=== PATIENT | male | born 1955 | race African-American/Black ===

== ENCOUNTER 2019-09-29 09:14 | Inpatient (IN) | payer OTHER, MEDICAID ==
[~2019-09-29] VITALS: Ht 180.3 cm; Wt 113.4 kg
--- NOTE | 2019-09-29 09:14 | NUR ---
PATIENT BIBA TO BED 9 AT THIS TIME.
[2019-09-29 09:27] VITALS: BP 103/58
--- NOTE | 2019-09-29 09:30 | NUR ---
FITO FROM [facility] C/O EDEMA TO PTS BILATERAL LEGS UP TO PITS HIP, L ARM/HAND AND SWOLLEN TESTICLES APPROX THE SIZE OF A CANTALOPE, WITH PAIN 7/10. PER PT THE SWELLING STARTED A "COUPLE DAYS AGO". 2+PITTING EDEMA TO LEGS. PALPABLE RADIAL PULSES. USED DOPPLER FOR PEDAL PULSES. HR 101. LUNGS CLEAR BILATERALLY. CURRENTLY ON RA. PT USES CANE/WHEELCHAIR TO ASSIST. PT ALERT AND AWAKE. PMH- HTN, CHF, PACEMAKER, MUSCLE WEAKNESS, HYPERLIPIDEMIA, GERD, AFIB, CKD, PREVIOUS FRACTURED L HIP RX- LASIX, CARVEDILOL
--- NOTE | 2019-09-29 09:31 | NUR ---
JUAN STATES HE DID NOT TAKE HIS LASIX TODAY
--- NOTE | 2019-09-29 09:50 | NUR ---
URINE COLLECTED, PT ABLE TO VOID
--- NOTE | 2019-09-29 10:11 | NUR ---
PT STARTED ON 3 L NC. PT 02 WAS 90% RA.
--- NOTE | 2019-09-29 10:16 | NUR ---
IV INSERTED, UNABLE TO DRAW LABS
--- NOTE | 2019-09-29 10:32 | NUR ---
EMT AT BEDSIDE FOR EKG
--- NOTE | 2019-09-29 10:42 | NUR ---
XRAY AT BEDSIDE
[2019-09-29] MEDS ORDERED: CARV6.25 PO ×2 (10:43→14:06)
[2019-09-29] MEDS ORDERED: FURO-570 PO (10:43)
--- NOTE | 2019-09-29 10:48 | NUR ---
Called and spoke to Estela from [facility] to obtain a medication list. Estela is the med tech at [facility] and states patient takes his own medications. She will provide me with an old list when he was first brought to the facility that she states "I know some things have changed but I don't know which ones." I asked her to fax over the old medication list and I will review it with the patient.
[2019-09-29] MEDS ORDERED: FUROSEMIDE 100 MG/10 ML VIAL IVP ONE (11:05)
[2019-09-29] MEDS ORDERED: NITROGLYCERIN 2% 1 GM PKT TP ONE (11:05)
[2019-09-29] MEDS ORDERED: SPIRONOLACTONE 50 MG TAB PO ONE (11:05)
--- NOTE | 2019-09-29 11:12 | NUR ---
ULTRASOUND AT BEDSIDE STRATEGIC ADVISOR TO ATTEMPT ABG AT A LATER TIME
--- NOTE | 2019-09-29 11:16 | NUR ---
US AT BEDSIDE
[2019-09-29 11:24] LABS: ANION GAP 10.5 (8-16); CREATININE 2.2 mg/dL (0.7-1.3); POTASSIUM 3.5 mmol/L (3.5-5.1)
[2019-09-29 11:26] LABS: PROTHROMBIN TIME 13.9 secs (10.8-13.4)
[2019-09-29 11:30] LABS: ALBUMIN 3.1 g/dL (3.4-5.0); TOTAL BILIRUBIN 3.3 mg/dL (0.0-1.0)
[2019-09-29 11:31] LABS: APPEARANCE,URINE CLEAR (CLEAR); BILIRUBIN,URINE NEGATIVE (NEGATIVE); BLOOD, URINE NEGATIVE (NEGATIVE); COLOR,URINE YELLOW (YELLOW); LEUKOCYTE ESTERASE ,URINE NEGATIVE (NEGATIVE); NITRITE, URINE NEGATIVE (NEGATIVE); UGLUCOSE NEGATIVE (NEGATIVE)
--- NOTE | 2019-09-29 11:32 | NUR ---
NITRO TP APPLIED TO PT CHEST, LASIX IVP AND SPIRALACTONE PO ADMINISTERED
[2019-09-29 11:34] LABS: HEMOGLOBIN 8.2 g/dL (12.0-18.0); MEAN CORPUSCULAR HEMOGLOBIN 21 pg (27-31); MEAN CORPUSCULAR HGB CONC 30 g/dL (33-37); MEAN CORPUSCULAR VOLUME 69.3 fL (80-94); PLATELET COUNT (AUTO) 181 K/uL (140-450); WHITE BLOOD COUNT (AUTO) 4.9 K/uL (4.8-10.8)
[2019-09-29 11:43] LABS: LYMPHOCYTES % (MANUAL) 15 % (20-46); MONOCYTES % (MANUAL) 15 % (5-12)
[2019-09-29 11:44] LABS: EOSINOPHILS % (MANUAL) 7 % (0-4)
--- NOTE | 2019-09-29 11:47 | NUR ---
RT AT BEDSIDE FOR ABGS
[2019-09-29] MEDS ORDERED: MORPHINE SULFATE 2 MG/ML SYR IVP ONE (12:00)
--- NOTE | 2019-09-29 12:08 | NUR ---
NADR AT THIST JOSE L. PAIN 04/23 , MORPHINE IVP ADMINISTERED
[2019-09-29] MEDS ORDERED: LORazepam 2 MG/ML VIAL IM/IVP PRN (12:40)
[2019-09-29] MEDS ORDERED: ZOLPIDEM 5 MG TAB PO PRN (12:40)
[2019-09-29] MEDS ORDERED: ONDANSETRON 4 MG/2 ML VIAL IM/IVP PRN (12:40)
[2019-09-29] MEDS: NACL 0.9% 1,000 ML IV SCH (12:40)
[2019-09-29] MEDS ORDERED: DOCUSATE SODIUM 100 MG GELCAP PO PRN (12:40)
[2019-09-29] MEDS ORDERED: MORPHINE SULFATE 2 MG/ML SYR IVP PRN (12:40)
[2019-09-29] MEDS ORDERED: ACETAMINOPHEN 325 MG TAB PO PRN (12:40)
--- NOTE | 2019-09-29 13:00 | NUR ---
PT URINATED 100 ML OF YELLOW URINE
[2019-09-29 13:09] LABS: BARBITURATE, URINE NEG. ng/ml (NEG <=200); BENZODIAZEPINE, URINE NEG. ng/mL (NEG <=200); CANNABINOID, URINE POS. ng/mL (NEG <=50); COCAINE, URINE NEG. ng/mL (NEG <=300); PHENCYCLIDINE SCREEN,URINE NEG. ng/mL (NEG <=25)
[2019-09-29 13:16] LABS: OPIATE, URINE NEG. ng/mL (NEG <=2000)
[2019-09-29 13:18] LABS: MAGNESIUM 2.4 mg/dL (1.8-2.4); PHOSPHORUS 3.3 mg/dL (2.5-4.9); THYROID STIMULATING HORMONE 2.45 uIU/mL (0.34-3.74)
[2019-09-29 13:30] VITALS: BP 118/81
--- NOTE | 2019-09-29 13:30 | NUR ---
NADR AT THIS TIME, PAIN 6/10
--- NOTE | 2019-09-29 13:30 | NUR ---
RECEIVED PT FROM ED NURSE. PT IS AWAKE AND ALERT, ON 3L O3 NC, IV SITE NOTED ON THE R HAND 20 G, PATENT AND INTACT. SKIN IS INTACT. ALL EXTREMITIES, ASIDE FROM THE RUE, ARE EDEMATOUS. THERE IS A SOFT BULGE NOTED TO BE PROTRUDING ON THE R SIDE OF THE NECK. PACEMAKER IS VISIBLE UNDER THE L CHEST SKIN. FALL PRECAUTIONS PUT IN PLACE. MRSA SWAB TAKEN. CALL LIGHT GIVEN TO THE PT WITHIN REACH. WILL CONTINUE TO MONITOR.
--- NOTE | 2019-09-29 13:35 | NUR ---
VS UPON ADMISSION: BP 118/81, HR 84, O2 100% ON 3L, TEMP 98.2, RR 20.
--- NOTE | 2019-09-29 13:36 | NUR ---
Patient will be admitted to care of DR TERAN. Admited to TELE. Will go to room 107B. Belongings list completed AND REVIEWED WITH BRANDON PEÑA. Report to CASEY TAYLOR.
--- NOTE | 2019-09-29 14:23 | NUR ---
PT REFUSING TO HAVE SENIOR CATHETER INSERTED, DR TRISTAN IS AWARE. PT IS ABLE TO USE THE URINAL.
[2019-09-29] MEDS ORDERED: MORPHINE SULFATE 2 MG/ML SYR IVP SCH (15:00)
[2019-09-29] MEDS ORDERED: NICOTINE TRANSD SYS 14 MG/24 HR PATCH TD SCH (15:00)
--- NOTE | 2019-09-29 15:30 | NUR ---
PT HAVING US AT THIS TIME
[2019-09-29 16:00] VITALS: BP 107/70
[2019-09-29] MEDS: FUROSEMIDE 40 MG/4 ML VIAL IVP SCH (17:13)
[2019-09-29] MEDS: SODIUM FERRIC GLUCONATE 125 MG in NACL 0.9% 100 ML IV SCH (17:13)
--- NOTE | 2019-09-29 19:20 | NUR ---
RECEIVED PATIENT FROM AM SHIFT NURSE. PATIENT LYING IN BED ASLEEP. IV ACCESS ON RIGHT HAND 20 GAUGE PATENT, INTACT AND INFUSING WELL. PACEMAKER IN PLACE. INITIAL ASSESSMENT DONE. TELE MONITORING IN PLACE. PATIENT IS AMBULATORY WITH ASSIST. SKIN IS INTACT BUT NOTED WITH EDEMA ON LEFT ARM AND LOWER EXTREMITIES.ON 3LPM O2 VIA NASAL CANNULA. CALL LIGHT PLACED WITHIN PATIENT REACH. BED IN LOW. WILL CONTINUE TO MONITOR PATIENT.
--- NOTE | 2019-09-29 21:06 | NUR ---
ROUNDS DONE. VISIBLE CHEST RISE AND FALL NOTED. WILL CONTINUE TO MONITOR PATIENT.
[2019-09-29] MEDS: CARVEDILOL 6.25 MG TAB PO SCH (21:32)
[2019-09-29] MEDS: ATORVASTATIN 20 MG TAB PO SCH (21:32)
--- NOTE | 2019-09-30 00:10 | NUR ---
VITALS TAKEN. NO DISTRESS NOTED. WILL CONTINUE TO MONITOR PATIENT.
[2019-09-30 00:30] LABS: IRON, SERUM 24 ug/dl (50-175)
[2019-09-30 00:31] LABS: TOTAL IRON BINDING CAPACITY 323 ug/dl (250-450)
[2019-09-30 00:33] VITALS: BP 107/66
[2019-09-30] MEDS: HYDROcodone/APAP 5/325 MG 1 TAB TAB PO PRN ×2 (01:16→22:54)
--- NOTE | 2019-09-30 02:00 | NUR ---
ROUNDS DONE. VISIBLE CHEST RISE AND FALL NOTED. WILL CONTINUE TO MONITOR PATIENT.
--- NOTE | 2019-09-30 02:55 | NUR ---
SPOKE WITH DR. FERRIS FOR STAT EKG TO BE DONE. PATIENT IN STABLE CONDITION AT THIS TIME VISIBLE CHEST RISE AND FALL NOTED.
[2019-09-30 04:10] VITALS: BP 131/63
--- NOTE | 2019-09-30 04:15 | NUR ---
VITALS TAKEN. NO DISTRESS NOTED. WILL CONTINUE TO MONITOR PATIENT.
[2019-09-30 06:12] LABS: FOLIC ACID 6.8 ng/mL (>3.0)
--- NOTE | 2019-09-30 07:04 | NUR ---
PATIENT IN STABLE CONDITION. CALL LIGHT WITHIN PATIENT REACH. ENDORSED TO AM SHIFT NURSE FOR CONTINUITY OF CARE.
--- NOTE | 2019-09-30 07:05 | NUR ---
RECEIVED REPORT FROM HEALTH SAFETY ENGINEER NURSE, PATIENT IN STABLE CONDITION, WILL CONTINUE TO MONITOR.
[2019-09-30 08:00] VITALS: BP 107/61
[2019-09-30 08:13] LABS: BASOPHILS # (AUTO) 0.1 K/uL (0.00-0.22); BASOPHILS % (AUTO) 2.8 % (0.0-2.0); EOSINOPHILS # (AUTO) 0.4 K/uL (0-0.4); EOSINOPHILS % (AUTO) 8.7 % (0.0-4.0); HEMOGLOBIN 7.8 g/dL (12.0-18.0); LYMPHOCYTES # (AUTO) 0.5 K/uL (2.0-11.5); LYMPHOCYTES % (AUTO) 9.8 % (20.5-51.1); MEAN CORPUSCULAR HEMOGLOBIN 21 pg (27-31); MEAN CORPUSCULAR HGB CONC 30 g/dL (33-37); MEAN CORPUSCULAR VOLUME 70.1 fL (80-94); MONOCYTES # (AUTO) 0.6 K/uL (0.8-1.0); MONOCYTES % (AUTO) 11.6 % (1.7-9.3); NEUTROPHILS # (AUTO) 3.3 K/uL (1.8-7.7); NEUTROPHILS % (AUTO) 67.1 % (42.2-75.2); PLATELET COUNT (AUTO) 143 K/uL (140-450); WHITE BLOOD COUNT (AUTO) 4.9 K/uL (4.8-10.8)
--- NOTE | 2019-09-30 08:43 | NUR ---
PATIENT HAS BEEN SCREENED AND CATEGORIZED MODERATE NUTRITION RISK. PATIENT WILL BE SEEN WITHIN 3-5 DAYS OF ADMISSION. 10/02/19 10/04/[address]
--- NOTE | 2019-09-30 09:00 | NUR ---
SCHEDULED MEDICATION GIVEN TO PATIENT WITHOUT DISTRESS, PATIENT IN STABLE CONDITION. WILL CONTINUE TO MONITOR
[2019-09-30 09:08] LABS: ANION GAP 15.4 (8-16); CARBON DIOXIDE 26.4 mmol/L (21-32); CREATININE 2.1 mg/dL (0.7-1.3); POTASSIUM 3.8 mmol/L (3.5-5.1)
[2019-09-30 09:14] LABS: MAGNESIUM 2.3 mg/dL (1.8-2.4); PHOSPHORUS 3.8 mg/dL (2.5-4.9)
[2019-09-30] MEDS: FAMOTIDINE 20 MG TAB PO SCH (09:31)
[2019-09-30] MEDS: FUROSEMIDE 40 MG/4 ML VIAL IVP SCH ×2 (09:32→17:22)
[2019-09-30] MEDS: SPIRONOLACTONE 50 MG TAB PO SCH ×2 (09:32→20:47)
[2019-09-30] MEDS: LACTULOSE 20 GM/30 ML UDC PO SCH ×2 (09:32→20:48)
[2019-09-30] MEDS: NICOTINE TRANSD SYS 14 MG/24 HR PATCH TD SCH (09:33)
[2019-09-30] MEDS: MORPHINE SULFATE 2 MG/ML SYR IVP PRN ×2 (09:34→20:46)
[2019-09-30] MEDS: CARVEDILOL 6.25 MG TAB PO SCH ×2 (09:35→22:00)
--- NOTE | 2019-09-30 09:43 | NUR ---
PATIENT REQUESTING PAIN MEDICATION FOR HIP PAIN, MEDICATION WILL BE GIVEN PER PROTOCOL
--- NOTE | 2019-09-30 10:15 | NUR ---
PATIENT SLEEPING IN BED, NO DISTRESS NOTED. WILL CONTINUE TO MONITOR.
--- NOTE | 2019-09-30 10:46 | NUR ---
DISCHARGE PLANNING: CONTACTED [facility] AT [phone], ABLE TO SPEAK TO YUDELKA IYER. UPDATED HER OF THE PATIENT'S CONDITION. Addendum: 10/01/19 at 1404 by Erum Huber RECEIVED AN ORDER FOR DC PLAN TO SNF FOR PT NEEDS ON 10/03/19. ORDER AND PT NOTES FAXED TO [facility] AT [phone]. CM WILL FOLLOW UP. Addendum: 10/01/19 at 0425 by Erum Huber MET WITH THE PATIENT AT THE BEDSIDE TO DISCUSS DC PLAN TO SNF FOR PT, PATIENT IS AGREEABLE. Addendum: 10/01/19 at 1553 by Erum Huber CM CONTACTED YUDELKA IYER AT REPLACED BY [facility], SHE CONFIRMED THAT SHE RECEIVED THE ORDER AND PT NOTES. CONFIRMED THAT CONTRACTED LIST OF FACILITIES ON FILE. SHE SAID TO JUST CONTINUE UPDATING HER OF THE PLAN AND ACCEPTING FACILITY AND WILL PROVIDE AUTH FOR SNF AND TRANSPORT ONCE THERE IS AN ACCEPTING FACILITY. Addendum: 10/01/19 at 1600 by Erum Huber INQUIRY FAXED TO [facility]ALES AND [facility] MADRIGAL. Addendum: 10/01/19 at 1625 by Erum Huber CM RECEIVED A CALL FROM LUCINA ANDERS OF [facility], SHE STATED THEY CAN ACCEPT THE PATIENT. CONTACTED YUDELKA CROW[facility], NO ANSWER. UNABLE TO LEAVE MESSAGE, NO VOICEMAIL SET UP. CM WILL FOLLOW UP. Addendum: 10/02/19 at 1117 by Erum Huber CM CONTACTED YUDELKA CROWLEY [facility] REGARDING [facility]'S ACCEPTANCE. SHE STATED THAT PER HER DESKTOP SUPPORT ENGINEER PATIENT WILL GO BACK TO [facility], MADE HER AWARE THAT THE LATTER IS AN ASSISTED LIVING. SHE SAID PER THEIR PT, THAT IS THE PATIENT'S BASELINE. WILL INFORM DR. TRISTAN. Addendum: 10/02/19 at 1320 by Erum Huber CM SPOKE TO KRISH AT [facility], SHE STATED PATIENT DOES NOT WALK AND USES WHEELCHAIR AT BASELINE. SHE ALSO STATED THAT PATIENT DOES NOT NEED HELP TRANSFERRING FROM BED TO WHEELCHAIR. Addendum: 10/02/19 at 1445 by Erum Huber CM RECEIVED AN ORDER FOR SNF FOR [facility]. CONTACTED [facility], NO ANSWER. UNABLE TO LEFT MESSAGE. NO VOICEMAIL SET. WILL FOLLOW UP. Addendum: 10/02/19 at 1615 by Erum Huber CM RECEIVED AN ORDER FOR SNF PLACEMENT FOR [facility] IV X 5 DAYS. CONTACTED YUDELKA IYER OF [facility], SHE STATED SHE WILL PROVIDE SNF AND TRANSPORT AUTH TOMORROW. ORDER FAXED TO [phone]. CONTACTED LUCINA AT [facility] AT [phone], SHE STATED THEY ARE ABLE TO ACCEPT THE PATIENT. ORDER FAXED TO [phone]. Addendum: 10/03/19 at 1353 by Erum Huber CM LATE ENTRY: CONTACTED YUDELKA IYER AT REPLACED BY [facility], SHE PROVIDED ME WITH AUTH [id number] FOR TRANSPORT ([facility]) AND SNF. LUCINA OF [facility] AT [phone] MADE AWARE. PER LUCINA PATIENT WILL GO TO ROOM 21B UNDER DR. MCDONNELL. MET WITH THE PATIENT AT THE BEDSIDE TO INFORM HIM OF THE ACCEPTING FACILITY. ABLE TO VERBALIZE HIS UNDERSTANDING BY STATING "OK" CONTACTED [facility] AT [phone], SPOKE TO PRINCE. HEALTH PROGRAM DIRECTOR WILL BE AT 2030. CHARGE NURSE AND PRIMARY RN MADE AWARE. DR. TRISTAN MADE AWARE.
[2019-09-30 12:00] VITALS: BP 114/63
--- NOTE | 2019-09-30 12:05 | NUR ---
PT REFERRAL ORDERED, WILL CONTINUE TO MONITOR. PATIENT IN STABLE CONDITION.
[2019-09-30] MEDS: NACL 0.9% 1,000 ML IV SCH (12:40)
--- NOTE | 2019-09-30 12:54 | NUR ---
Interventional Cardiologist Note: Basic Screen: Yes High Risk DC Screen [place]: N/A Pre-Admission Living Arrangements: Other Other: [facility] Prior ADL Independent Current Home Health Name/Tel: N/A Current DME/02 Name/Tel: WHEELCHAIR, ELECTRIC WHEELCHAIR Current Hospice Name/Tel: N/A Current Dialysis Name/Tel: N/A Healthcare Decision Maker: Patient Advance Directive No Discipline: Case Mgt/Social Svcs Tentative Discharge Plan/Destination: No Needs Identified Tentative Discharge Plan Summary: Patient is a 63-year-old male admitted for CF, anasarca, and anemia. Patient has PMHX of CHF, hypertension, hyperlipedemia, GERD, A. Fib, CKD, and cardiac pacemaker. Patient was admitted from [facility]. SW contacted Estela from [facility] [phone]. Per Estela patient requires minimal assistance with ADLs and reports no emergency contact for patient. Estela stated that facility is unable to accommodate IV antibiotics and that patient is able to return to facility if patient returns at baseline condition. Patient has no advanced directive on file. Patient's tentative discharge plan is to return back to [facility]. No further needs identified. Signature: SIERRA Gamez Date: Sep 30, 2019 Time: 12:52
[2019-09-30 13:18] LABS: CHOL/HDL RATIO 1.4 (1-4.5)
--- NOTE | 2019-09-30 14:09 | NUR ---
PER RADIOLOGY PATIENT IS TO BE NPO UNTIL ABD U/A COMPLETED. CNAS ADVISED. PATIENT WATCHING TV AT THE BEDSIDE, IN STABLE CONDITION AT THIS TIME.
[2019-09-30 16:00] VITALS: BP 97/67
[2019-09-30] MEDS: SODIUM FERRIC GLUCONATE 125 MG in NACL 0.9% 100 ML IV SCH (16:09)
--- NOTE | 2019-09-30 17:45 | NUR ---
DOING ROUNDS, PATIENT EATING AT THE BEDSIDE. ABD U/S COMPLETED. PATIENT STABLE AT THIS TIME.
--- NOTE | 2019-09-30 19:08 | NUR ---
ENDORSED CARE TO SENIOR CARE ASSISTANT NURSE. PATIENT IN STABLE CONDITION.
[2019-09-30 20:00] VITALS: BP 119/58
[2019-09-30] MEDS: ATORVASTATIN 20 MG TAB PO SCH (20:47)
--- NOTE | 2019-09-30 21:00 | NUR ---
PT C/O PAIN. ADMINISTERED SCHEDULED PO AND SUBQ MEDICATIONS AND PRN IVP PAIN MEDICATION. PT TOLERATED THEM WELL. VS CHECKED AND CHARTED. HELD CARVEDILOL BP 119/58 WITHOUT PAIN MEDICATION YET. WILL REASSESS PT'S BP AFTER AN HOUR. WILL CONTINUE TO MONITOR PT.
--- NOTE | 2019-09-30 22:54 | NUR ---
PT REQUESTED FOR SLEEP AID MEDICATION, CAME BACK TO ROOM, REFUSED SLEEP AID MEDICATION AND OPTED FOR PRN PO PAIN MEDICATION INSTEAD. ADMINISTERED PRN PO PAIN MEDICATION, PT TEACHING GIVEN, PT VERBALIZED UNDERSTANDING. OFFERED OTHER NON-PHARMACOLOGIC TECHNIQUES TO RELIEVE PAIN. PT VERBALIZED UNDERSTANDING. WILL CONTINUE TO MONITOR PT.
[2019-10-01] VITALS: BP 110/72
--- NOTE | 2019-10-01 | NUR ---
VS CHECKED AND CHARTED. PT DENIES PAIN. WILL CONTINUE TO MONITOR PT.
--- NOTE | 2019-10-01 02:00 | NUR ---
MADE ROUNDS. PT ASLEEP WITH NO SIGNS OF DISTRESS. PT'S O2 NC OFF, RE-INSERTED. WILL CONTINUE TO MONITOR PT.
[2019-10-01 04:00] VITALS: BP 100/60
--- NOTE | 2019-10-01 04:30 | NUR ---
VS CHECKED AND CHARTED. PT ASLEEP WITH NO SIGNS OF DISTRESS. WILL CONTINUE TO MONITOR PT.
[2019-10-01 06:50] LABS: BASOPHILS # (AUTO) 0.1 K/uL (0.00-0.22); BASOPHILS % (AUTO) 2.6 % (0.0-2.0); EOSINOPHILS # (AUTO) 0.4 K/uL (0-0.4); EOSINOPHILS % (AUTO) 8.3 % (0.0-4.0); HEMATOCRIT 26.9 % (36-52); LYMPHOCYTES # (AUTO) 0.6 K/uL (2.0-11.5); LYMPHOCYTES % (AUTO) 10.6 % (20.5-51.1); MEAN CORPUSCULAR HEMOGLOBIN 21 pg (27-31); MEAN CORPUSCULAR HGB CONC 30 g/dL (33-37); MEAN CORPUSCULAR VOLUME 70.3 fL (80-94); MONOCYTES # (AUTO) 0.7 K/uL (0.8-1.0); MONOCYTES % (AUTO) 12.6 % (1.7-9.3); NEUTROPHILS # (AUTO) 3.4 K/uL (1.8-7.7); NEUTROPHILS % (AUTO) 65.9 % (42.2-75.2); PLATELET COUNT (AUTO) 158 K/uL (140-450); RED BLOOD CELL COUNT(AUTO) 3.83 MIL/uL (4.20-6.10); RED CELL DISTRIBUTION WIDTH 23.1 % (11.6-13.7); WHITE BLOOD COUNT (AUTO) 5.2 K/uL (4.8-10.8)
[2019-10-01] MEDS ORDERED: MINERAL OIL 135 ML ENEM RC SCH (07:00)
--- NOTE | 2019-10-01 07:05 | NUR ---
RECEIVED PT FROM NIGHT NURSE. PT IN BED WITH EYES CLOSED, AROUSABLE TO SPEECH, AAOX4. SKIN INTACT, GENERALIZED EDEMA PRESENT. PT DENIES PAIN. RESPIRATIONS EVEN AND UNLABORED ON O2 2L NC. IV IN PLACE PATENT ASYMPTOMATIC AND INFUSING PER ORDER IN R AC 20G. BED IN LOW POSITION. CALL LIGHT WITHIN REACH. SAFETY MEASURES IN PLACE. WILL CONTINUE TO MONITOR.
[2019-10-01 07:10] LABS: ANION GAP 13.2 (8-16); CARBON DIOXIDE 28.3 mmol/L (21-32); CREATININE 2.2 mg/dL (0.7-1.3); POTASSIUM 3.5 mmol/L (3.5-5.1)
[2019-10-01 07:16] LABS: MAGNESIUM 2.1 mg/dL (1.8-2.4); PHOSPHORUS 3.4 mg/dL (2.5-4.9)
[2019-10-01 07:27] LABS: HEPATITIS A ANTIBODY IGM Negative (Negative); HEPATITIS B CORE AB TOTAL Negative (Negative); HEPATITIS B SURFACE ANTIGEN Negative (Negative)
[2019-10-01 08:00] VITALS: BP 102/59
[2019-10-01] MEDS ORDERED: RIVAROXABAN 10 MG TAB PO SCH (08:00)
[2019-10-01] MEDS ORDERED: FUROSEMIDE 40 MG/4 ML VIAL IVP SCH (09:00)
[2019-10-01] MEDS: CARVEDILOL 6.25 MG TAB PO SCH (09:00)
[2019-10-01] MEDS: SPIRONOLACTONE 50 MG TAB PO SCH ×2 (09:17→20:34)
[2019-10-01] MEDS: LACTULOSE 20 GM/30 ML UDC PO SCH ×2 (09:18→20:43)
[2019-10-01] MEDS: NICOTINE TRANSD SYS 14 MG/24 HR PATCH TD SCH (09:19)
[2019-10-01] MEDS: FAMOTIDINE 20 MG TAB PO SCH (09:19)
[2019-10-01] MEDS ORDERED: BUMETANIDE 1 MG/4 ML VIAL IV SCH (09:20)
[2019-10-01] MEDS ORDERED: CARV6.25 PO (09:23)
[2019-10-01] MEDS ORDERED: LOSA25TA43 PO (09:23)
[2019-10-01] MEDS ORDERED: APIX5TAB PO (09:23)
[2019-10-01] MEDS ORDERED: POTA20TE92 PO (09:23)
[2019-10-01] MEDS ORDERED: ZAR2.5 PO (09:23)
[2019-10-01] MEDS ORDERED: FURO-570 PO (09:23)
--- NOTE | 2019-10-01 09:27 | NUR ---
MEDICATIONS ADMINISTERED PER ORDER. PT TOLERATED WELL. NO DISTRESS NOTED. WILL CONTINUE TO MONITOR.
[2019-10-01] MEDS ORDERED: METOLAZONE 2.5 MG TAB PO SCH (10:17)
[2019-10-01] MEDS ORDERED: APIXABAN 2.5 MG TAB PO SCH (10:18)
--- NOTE | 2019-10-01 10:46 | NUR ---
MEDICATIONS ADMINISTERED PER ORDER. PT TOLERATED WELL, NO DISTRESS NOTED. WILL CONTINUE TO MONITOR.
[2019-10-01 12:00] VITALS: BP 95/61
--- NOTE | 2019-10-01 12:32 | NUR ---
VITAL SIGNS TAKEN AT THIS TIME. PT DENIES PAIN, NO DISTRESS NOTED. SAFETY MEASURES IN PLACE. CALL LIGHT WITHIN REACH. WILL CONTINUE TO MONITOR.
[2019-10-01] MEDS: NACL 0.9% 1,000 ML IV SCH (12:40)
--- NOTE | 2019-10-01 14:48 | NUR ---
PT ASLEEP IN BED. NO DISTRESS NOTED. IV PATENT AND ASYMPTOMATIC, INFUSING PER ORDER. SAFETY MEASURES IN PLACE. CALL LIGHT WITHIN REACH. WILL CONTINUE TO MONITOR.
[2019-10-01 16:00] VITALS: BP 99/60
--- NOTE | 2019-10-01 17:15 | NUR ---
PT IN BED AWAKE, WITH EYES CLOSED. AROUSABLE TO SPEECH. NO DISTRESS NOTED, DENIES PAIN. CALL LIGHT WITHIN REACH, SAFETY MEASURES IN PLACE. WILL CONTINUE TO MONITOR.
--- NOTE | 2019-10-01 19:15 | NUR ---
REPORT GIVEN TO NIGHT NURSE FOR CONTINUITY OF CARE.
--- NOTE | 2019-10-01 19:30 | NUR ---
RECEIVED BEDSIDE REPORT FROM DAY RN. PT IS SLEEPING STATES HE IS COLD. GAVE A BLANKET UPON REQUEST. PT IS AAOX4 BUT LETHARGIC. IV ON RAC 20G NS AT 10M/H. DX CHF, ANASARCA PT WITH DONITA PITTING EDEMA ON LEGS AND ARMS. AMMONIA LEVEL HIGH GETTING LACTULOSE PER RN NO BM TODAY. PT REFUSED ENEMA. LEVEL IS TRENDING DOWN. PT ON STRICT I&O BUT REFUSING SENIOR CATH. PT USES URINAL.SKIN IS INTACT. POC DISCUSSED WITH PT. ALL SAFETY MEASURES ARE IN PLACE. CALL LIGHT IS WITHIN REACH. WILL CONTINUE TO MONITOR.
[2019-10-01 19:52] LABS: HEPATITIS B SURFACE ANTIBODY >11.0 (NONREACTIVE)
[2019-10-01 20:00] VITALS: BP 115/73
[2019-10-01] MEDS: BUMETANIDE 1 MG/4 ML VIAL IV SCH (20:33)
--- NOTE | 2019-10-01 20:33 | NUR ---
VSS B/P 115/73 HR 84 RADHA MEDICATIONS GIVEN PT ON MX DIURETICS HELD COREG WILL RECHECK B/P IN AN HOUR AND GIVE PER PARAMETERS. PT REFUSED LACTULOSE EDUCATED ON REASON TO LOWER AMMONIA. PT STILL REFUSED STATES, "I DONT WANT TO POOP." EDUCATED ON IMPORTANCE STILL REFUSED. TRENDING AMMONIA LEVEL IN AM. ALL NEEDS MET AT THIS TIME. CALL LIGHT IS WITHIN REACH.
[2019-10-01] MEDS: ATORVASTATIN 20 MG TAB PO SCH (20:35)
[2019-10-01] MEDS: APIXABAN 2.5 MG TAB PO SCH (20:43)
[2019-10-01] MEDS: CARVEDILOL 3.125 MG TAB PO SCH (21:00)
--- NOTE | 2019-10-01 21:46 | NUR ---
PT'S B/P 120/53 HR 81. PT REFUSED COREG. EDUCATED ON REASON AND ITS HOME MED. PT STATES, "NO I DON'T WANT TO TAKE IT!" WILL CONTINUE TO MONITOR.
[2019-10-02] VITALS: BP 120/53
--- NOTE | 2019-10-02 | NUR ---
VITAL SIGNS ARE WITHIN NORMAL LIMITS. DENIES PAIN. ALL NEEDS MET AT THIS TIME. CALL LIGHT IS WITHIN REACH. WILL CONTINUE TO MONITOR.
--- NOTE | 2019-10-02 02:12 | NUR ---
MADE ROUNDS. PT IS SLEEPING COMFORTABLY IN BED WITH EYES CLOSED. CHEST RISE AND FALL NOTED. SAFETY MEASURES ARE IN PLACE. WILL CONTINUE TO MONITOR.
[2019-10-02 04:00] VITALS: BP 105/59
--- NOTE | 2019-10-02 04:10 | NUR ---
VITAL SIGNS ARE WITHIN NORMAL LIMITS. DENIES PAIN. PT IS SAT 96% ON RA. WILL KEEP NC OFF AND MONITOR. ALL SAFETY MEASURES ARE IN PLACE. CALL LIGHT IS WITHIN REACH.
[2019-10-02] MEDS: MORPHINE SULFATE 2 MG/ML SYR IVP PRN ×3 (04:45→20:47)
--- NOTE | 2019-10-02 04:45 | NUR ---
ADMINISTERED PRN MORPHINE FOR BACK PAIN 07/24. PT WAS SOILED AND REFUSED TO BE CLEAN D/T BACK PAIN. TALKED TO PATIENT AND AGREED TO LET CNAs AND I CLEAN HIM. PATIENT WITH CLEAN AND DRY LINEN. ALL NEEDS MET AT THIS TIME. CALL LIGHT IS WITHIN REACH. WILL CONTINUE TO MONITOR.
--- NOTE | 2019-10-02 06:31 | NUR ---
APPLIED CONDOM CATH AND SECURED TO RIGHT LEG. PT STILL REFUSING SENIOR CATH. SCROTUM IS STILL VERY SWOLLEN WILL CONTINUE TO MONITOR.
--- NOTE | 2019-10-02 07:16 | NUR ---
GAVE BEDSIDE REPORT TO DAY RN. PT ENDORSED IN STABLE CONDITION.
[2019-10-02 07:17] LABS: ANION GAP 12.5 (8-16); BASOPHILS # (AUTO) 0.1 K/uL (0.00-0.22); BASOPHILS % (AUTO) 1.4 % (0.0-2.0); CARBON DIOXIDE 28.1 mmol/L (21-32); EOSINOPHILS # (AUTO) 0.4 K/uL (0-0.4); EOSINOPHILS % (AUTO) 7.6 % (0.0-4.0); HEMATOCRIT 26.2 % (36-52); HEMOGLOBIN 8.1 g/dL (12.0-18.0); LYMPHOCYTES # (AUTO) 0.5 K/uL (2.0-11.5); LYMPHOCYTES % (AUTO) 8.9 % (20.5-51.1); MEAN CORPUSCULAR HEMOGLOBIN 21 pg (27-31); MEAN CORPUSCULAR HGB CONC 31 g/dL (33-37); MEAN CORPUSCULAR VOLUME 68.9 fL (80-94); MONOCYTES # (AUTO) 0.7 K/uL (0.8-1.0); MONOCYTES % (AUTO) 11.8 % (1.7-9.3); NEUTROPHILS # (AUTO) 4.1 K/uL (1.8-7.7); NEUTROPHILS % (AUTO) 70.3 % (42.2-75.2); PLATELET COUNT (AUTO) 138 K/uL (140-450); POTASSIUM 3.6 mmol/L (3.5-5.1); WHITE BLOOD COUNT (AUTO) 5.8 K/uL (4.8-10.8)
--- NOTE | 2019-10-02 07:29 | NUR ---
RECEIVED REPORT FROM NIGHT NURSE. PT AWAKE, AAOX4, DROWSY. DENIES PAIN, NO DISTRESS NOTED. IV IN PLACE AND INFUSING PER ORDER, PATENT AND ASYMPTOMATIC. RESPIRATIONS EVEN AND UNLABORED ON O2 2L VIA NC. SKIN INTACT. CONDOM CATH IN PLACE. BED IN LOW POSITION, SAFETY MEASURES IN PLACE. CALL LIGHT WITHIN REACH, WILL CONTINUE TO MONITOR.
[2019-10-02 07:31] LABS: MAGNESIUM 1.9 mg/dL (1.8-2.4); PHOSPHORUS 2.8 mg/dL (2.5-4.9)
[2019-10-02 08:00] VITALS: BP 91/69
[2019-10-02] MEDS ORDERED: MORPHINE SULFATE 2 MG/ML SYR IVP SCH (08:00)
[2019-10-02] MEDS: CARVEDILOL 3.125 MG TAB PO SCH ×2 (09:00→20:46)
[2019-10-02] MEDS ORDERED: NON-FORMULARY ITEM (Potassium Chloride 1 TAB) PO SCH (09:00)
[2019-10-02] MEDS: LOSARTAN 25 MG TAB PO SCH (09:00)
[2019-10-02] MEDS: APIXABAN 2.5 MG TAB PO SCH ×2 (09:00→20:38)
[2019-10-02] MEDS: LACTULOSE 20 GM/30 ML UDC PO SCH ×2 (09:00→20:45)
[2019-10-02] MEDS: POTASSIUM CHLORIDE 10 MEQ TABER PO SCH (09:05)
[2019-10-02] MEDS: NICOTINE TRANSD SYS 14 MG/24 HR PATCH TD SCH (09:06)
[2019-10-02] MEDS: FAMOTIDINE 20 MG TAB PO SCH (09:06)
[2019-10-02] MEDS: SPIRONOLACTONE 50 MG TAB PO SCH ×2 (09:06→20:45)
[2019-10-02] MEDS: BUMETANIDE 1 MG/4 ML VIAL IV SCH ×2 (09:12→20:45)
--- NOTE | 2019-10-02 09:23 | NUR ---
MEDICATIONS ADMINISTERED PER ORDER. PT TOLERATED WELL. BP MEDS HELD DUE TO LOW BP. ELIQUIS HELD DUE TO LOW PLATELETS. WILL CONTINUE TO MONITOR.
--- NOTE | 2019-10-02 11:30 | NUR ---
P.T. NOTES 1ST ATTEMPT TO WORK WITH PT AFTER RN CLEARED PT SAID "NO! NOT NOW I NEED MY MEDS. TYLENOL DOES NOT WORK" RN AWARE AND WILL GIVE MEDS TO PATIENT. AT A LATER TIME, THIS P.T. WAS THEN WORKING WITH PT'S ROOMMATE (107A) WHEN MR. HERNADEZ YELLED "I HAVE TO PEE, I NEED HELP!" THIS P.T. INSTRUCTED PT TO USE CALL LIGHT TO ASK FOR NURSE HELP, CHARGE NURSE THEN ARRIVED OUTSIDE OF THE ROOM, THIS P.T THEN ENDORSED TO CHARGE NURSE MR. HERNADEZ NEEDS HELPS TO PEE, PT KEPT YELLING " I HEAR YOU! I SAID I NEED HELP, I WILL REPORT YOU!" CHARGE NURSE THEN ASSISTED PT TO URINATE, BUT SINCE PT BECAME IRRITABLE WITH THIS P.T. (EVEN IF I WAS TRYING TO ASSIST HIM DESPITE WORKING WITH HIS ROOMMATE) HE DOES NOT WANT TO PARTICIPATE WITH THIS P.T. ANYMORE. RN AWARE.
--- NOTE | 2019-10-02 11:32 | NUR ---
VITAL SIGNS TAKEN AT THIS TIME. PT KATHARINA PAIN, NO DISTRESS NOTED. SAFETY MEASURES IN PLACE. CALL LIGHT WITHIN REACH. WILL CONTINUE TO MONITOR.
[2019-10-02 12:00] VITALS: BP 92/74
[2019-10-02] MEDS: NACL 0.9% 1,000 ML IV SCH (12:40)
--- NOTE | 2019-10-02 13:45 | NUR ---
ATTEMPTED TO INSERT SENIOR CATHETER. UNABLE TO INSERT DUE TO RESISTANCE. REPORTED TO MD, NO NEW ORDERS. WILL DO BLADDER SCAN AND REASSES.
[2019-10-02] MEDS: HYDROcodone/APAP 5/325 MG 1 TAB TAB PO PRN (14:14)
--- NOTE | 2019-10-02 15:38 | NUR ---
10/02/19 RD INITIAL ASSESSMENT COMPLETED PLEASE REFER TO NUTRITION ASSESSMENT UNDER CARE ACTIVITY FOR ESTIMATED NUTRITIONAL NEEDS. 1. CONTINUE RENAL AND CARDIAC DIET TOLERATED 2. ENCOURAGE INCREASING PO INTAKE 3. RD PROVIDED NUTRITION EDUCATION ON CHF. HANDOUT LEFT AT BEDSIDE 4. RD TO FOLLOW-UP 2-3 DAYS, HIGH RISK HERMAN HERNANDEZ RD
--- NOTE | 2019-10-02 15:50 | NUR ---
PT IN BED ASLEEP. NO DISTRESS NOTED. SAFETY MEASURES IN PLACE. CALL LIGHT WITHIN REACH. WILL CONTINUE TO MONITOR.
[2019-10-02 16:00] VITALS: BP 108/75
--- NOTE | 2019-10-02 18:12 | NUR ---
PT IN BED AWAKE. DENIES PAIN, NO DISTRESS NOTED. SAFETY MEASURES IN PLACE. CALL LIGHT WITHIN REACH. WILL CONTINUE TO MONITOR.
--- NOTE | 2019-10-02 19:29 | NUR ---
REPORT GIVEN TO NIGHT NURSE FOR CONTINUITY OF CARE.
[2019-10-02 20:00] VITALS: BP 106/67
[2019-10-02] MEDS: ATORVASTATIN 20 MG TAB PO SCH (20:42)
--- NOTE | 2019-10-02 20:50 | NUR ---
PT C/O OF SEVERE BACK PAIN, HE WAS GIVEN IVP MORPHINE, WILL MONITOR FOR EFFECT.
--- NOTE | 2019-10-02 21:00 | NUR ---
PT IN BED, HE WAS TURNED AND REPOSITIONED. HE IS AOX2 HAS HAS A N/C WITH 2 LITERS RUNNING 02. SKIN INTACT BUT EDEMATOUS INCLUDING SCROTUM DEPENDENT EDEMA FEET IS PITTING EDEMA +4. SOME EDEMA NOTED ON UPPER LIMBS. PT IS CONTINENT AND USES URINAL AT BEDSIDE. IV SITE INTACT AND RUNNING NS AT 10MLS/HR TO KVO. PT GIVEN DUE MEDS OF ELIQUIS, AND LIPITOR. EDUCATION REGARDING MEDICATION, AND SIDE EFFECTS, PROVIDED AT BEDSIDE B/P MEDS AND DIURETICS HELD DUE TO LOW B/P. MD FERRIS AWARE. ALL FALLS PRECAUTIONS IN PLACE AND CALL VELASCO IN REACH.
--- NOTE | 2019-10-02 22:45 | NUR ---
BLADDER SCAN DONE TO DOUBLE CHECK FOR RETENTION. NO URINE NOTED IN BLADDER PT DID HAVE X2 INCONTINENT EPISODE, HE WAS TURNED, CHANGED AND REPOSITIONED IN BED. ALL FALLS PRECAUTIONS IN PLACE.
[2019-10-03] VITALS: BP 108/63
--- NOTE | 2019-10-03 | NUR ---
PT IN LOW BED WITH SIDE RAILS UP X2.; HE DENIES PAIN AT THIS TIME. IV SITE INTACT AND RUNNING NS AT 10MLS/HR. HOB UP 35% AND N/C IN PLACE RUNNING 2 LITERS VIA N/C. ALL REQUESTED NEEDS ATTENDED BY STAFF AND CALL VELASCO IN REACH. V/S FOLLOWS: T 98.6 P 78 R 18 B/P 108/70 02 100% ON 2 LITERS VIA N/C. ALL FALLS PRECAUTIONS IN PLACE.
[2019-10-03] MEDS: HYDROcodone/APAP 5/325 MG 1 TAB TAB PO PRN (01:53)
--- NOTE | 2019-10-03 02:00 | NUR ---
PT IN BED, HE HAD C/O OF MODERATE PAIN IN BACK, HE WAS GIVEN PO/PRN NORCO. WILL MONITOR FOR EFFECT. ALL FALLS PRECAUTIONS IN PLACE.
[2019-10-03 04:00] VITALS: BP 108/70
--- NOTE | 2019-10-03 04:00 | NUR ---
PT IN BED V/S FOLLOWS: T 98.1 P 75 R 18 B/P 124/61 02 95 W 2 LITERS VIA N/C
[2019-10-03 07:09] LABS: BASOPHILS % (AUTO) 0.4 % (0.0-2.0); EOSINOPHILS # (AUTO) 0.5 K/uL (0-0.4); EOSINOPHILS % (AUTO) 9.5 % (0.0-4.0); HEMATOCRIT 26.4 % (36-52); HEMOGLOBIN 8.1 g/dL (12.0-18.0); LYMPHOCYTES # (AUTO) 0.5 K/uL (2.0-11.5); LYMPHOCYTES % (AUTO) 8.3 % (20.5-51.1); MEAN CORPUSCULAR HEMOGLOBIN 21 pg (27-31); MEAN CORPUSCULAR HGB CONC 31 g/dL (33-37); MEAN CORPUSCULAR VOLUME 69.7 fL (80-94); MONOCYTES # (AUTO) 0.8 K/uL (0.8-1.0); MONOCYTES % (AUTO) 13.9 % (1.7-9.3); NEUTROPHILS # (AUTO) 3.8 K/uL (1.8-7.7); NEUTROPHILS % (AUTO) 67.9 % (42.2-75.2); PLATELET COUNT (AUTO) 153 K/uL (140-450); RED BLOOD CELL COUNT(AUTO) 3.79 MIL/uL (4.20-6.10); WHITE BLOOD COUNT (AUTO) 5.6 K/uL (4.8-10.8)
[2019-10-03 07:33] LABS: MAGNESIUM 1.8 mg/dL (1.8-2.4); PHOSPHORUS 2.8 mg/dL (2.5-4.9)
--- NOTE | 2019-10-03 07:49 | NUR ---
RECEIVED BEDSIDE REPORT FROM ACCOUNTS ADJUSTABLE CLERK RN FOR CONTINUITY OF CARE. PT IS AAOX4 BUT LETHARGIC. IV ON RAC 20G NS AT 10M/H. DX CHF, ANASARCA PT WITH BILATERAL PITTING EDEMA ON LEGS AND ARMS. PT ON STRICT I&O BUT REFUSING SENIOR CATH. PT USES URINAL.SKIN IS INTACT. POC DISCUSSED WITH PT AND PT VERBALIZED UNDERSTANDING BUT NEEDS REINFORCEMENT. ALL SAFETY MEASURES ARE IN PLACE. CALL LIGHT IS WITHIN REACH. WILL MONITOR PT CLOSELY THROUGHOUT SHIFT.
[2019-10-03 08:07] LABS: ANION GAP 12.1 (8-16); CARBON DIOXIDE 29.6 mmol/L (21-32); POTASSIUM 3.7 mmol/L (3.5-5.1)
[2019-10-03 08:10] VITALS: BP 107/62
[2019-10-03] MEDS: CARVEDILOL 3.125 MG TAB PO SCH ×2 (09:00→21:01)
[2019-10-03] MEDS ORDERED: METOLAZONE 2.5 MG TAB PO SCH (09:00)
[2019-10-03] MEDS: LACTULOSE 20 GM/30 ML UDC PO SCH ×2 (09:00→21:00)
[2019-10-03] MEDS: LOSARTAN 25 MG TAB PO SCH (09:00)
[2019-10-03] MEDS: NICOTINE TRANSD SYS 14 MG/24 HR PATCH TD SCH (09:36)
[2019-10-03] MEDS: APIXABAN 2.5 MG TAB PO SCH ×2 (09:36→21:11)
[2019-10-03] MEDS: SPIRONOLACTONE 50 MG TAB PO SCH ×2 (09:37→21:02)
[2019-10-03] MEDS: BUMETANIDE 1 MG/4 ML VIAL IV SCH ×2 (09:37→21:03)
[2019-10-03] MEDS: FAMOTIDINE 20 MG TAB PO SCH (09:38)
[2019-10-03] MEDS: POTASSIUM CHLORIDE 10 MEQ TABER PO SCH (09:38)
--- NOTE | 2019-10-03 09:40 | NUR ---
ADMINISTERED MORNING MEDS TO PT. PT TOLERATED WELL. ALL NEEDS MET. WILL CONTINUE TO ROUND FREQUENTLY ON PT. BED IN LOW POSITION, CALL LIGHT WITHIN REACH.
[2019-10-03] MEDS ORDERED: NICO14TD30 TD (11:02)
[2019-10-03] MEDS ORDERED: LACT10SO11 PO (11:02)
[2019-10-03] MEDS ORDERED: FAMO20TA13 PO (11:02)
[2019-10-03] MEDS ORDERED: [UNRECOGNIZED DRUG - CODE] IV (11:02)
[2019-10-03] MEDS ORDERED: ATOR20TA40 PO (11:02)
--- NOTE | 2019-10-03 11:28 | NUR ---
PT SLEEPING IN BED. ALL NEEDS MET. WILL CONTINUE TO ROUND FREQUENTLY ON PT. BED IN LOW POSITION, CALL LIGHT WITHIN REACH.
[2019-10-03 12:00] VITALS: BP 117/73
[2019-10-03] MEDS: NACL 0.9% 1,000 ML IV SCH (12:40)
--- NOTE | 2019-10-03 13:40 | NUR ---
PT RESTING IN BED. ALL NEEDS MET. WILL CONTINUE TO ROUND ON PT.
--- NOTE | 2019-10-03 13:42 | NUR ---
PT RESTING IN BED. ALL NEEDS MET. WILL CONTINUE TO ROUND FREQUENTLY ON PT. BED IN LOW POSITION, CALL LIGHT WITHIN REACH.
--- NOTE | 2019-10-03 15:32 | NUR ---
PT RESTING IN BED. ALL NEEDS MET. WILL CONTINUE TO ROUND FREQUENTLY ON PT.
--- NOTE | 2019-10-03 15:42 | NUR ---
CALLED [facility]ANA MADRIGAL TO GIVE REPORT ON PT. GAVE REPORT TO KRISSY SCHUMACHER. HE IS AWARE OF TRANSPORT BEING [facility] AND PICKUP TIME OF 2029. PER SNEHAL SCHUMACHER TO BE LEFT IN FOR CONTINUATION OF IV THERAPY.
[2019-10-03 16:00] VITALS: BP 117/68
--- NOTE | 2019-10-03 17:42 | NUR ---
ALL NEEDS MET. WILL CONTINUE TO ROUND ON PT. BED IN LOW POSITION, CALL LIGHT WITHIN REACH.
--- NOTE | 2019-10-03 19:11 | NUR ---
ENDORSED PT TO MARINE ENGINEERING TECHNICIANS FOR CONTINUITY OF CARE. PT IN STABLE CONDITION AND TO BE DISCHARGED SHORTLY.
--- NOTE | 2019-10-03 19:12 | NUR ---
RECEIVED BEDSIDE REPORT FROM DAY SHIFT RN FOR CONTINUITY OF CARE. PT IS AAOX4 BUT LETHARGIC. IV ON RAC 20G NS AT 10M/H. DX CHF, ANASARCA PT WITH BILATERAL PITTING EDEMA ON LEGS AND ARMS. PT USES URINAL.SKIN IS INTACT. ALL SAFETY MEASURES ARE IN PLACE. PT WAITING FOR TRANSPORTATION TO BE TRANSFERRED. CALL LIGHT IS WITHIN REACH. WILL MONITOR PT CLOSELY THROUGHOUT SHIFT.
[2019-10-03 20:00] VITALS: BP 113/74
--- NOTE | 2019-10-03 21:01 | NUR ---
GIVEN ALL SCHEDULED MEDICATIONS EXCEPTS CEPHULAC. PT REFUSED CEPHULAC. PT TOLERATED WELL.
[2019-10-03] MEDS: ATORVASTATIN 20 MG TAB PO SCH (21:02)
--- NOTE | 2019-10-03 22:00 | NUR ---
TRANSPORTATION TEAM CAME. REMOVED NAME [facility], TELE MONITORING. PT LEFT UNIT.
== END 2019-10-03 22:00 | DRG 291 ==
LOC: MED 09:14 → MTU 12:40
PROVIDERS: ADMIT General Practice; ATTEND General Practice
DX: I13.0 Hypertensive heart and chronic kidney disease with heart failure and stage 1 through stage 4 chronic kidney disease, or unspecified chronic kidney disease (principal); N17.0 Acute kidney failure with tubular necrosis; I50.43 Acute on chronic combined systolic (congestive) and diastolic (congestive) heart failure; G93.41 Metabolic encephalopathy; E44.1 Mild protein-calorie malnutrition; K72.90 Hepatic failure, unspecified without coma; E78.5 Hyperlipidemia, unspecified; I48.91 Unspecified atrial fibrillation; N18.9 Chronic kidney disease, unspecified; K21.9 Gastro-esophageal reflux disease without esophagitis; E78.00 Pure hypercholesterolemia, unspecified; D64.9 Anemia, unspecified; F12.99 Cannabis use, unspecified with unspecified cannabis-induced disorder; N43.3 Hydrocele, unspecified; I86.1 Scrotal varices; D50.9 Iron deficiency anemia, unspecified; Z68.34 Body mass index [BMI] 34.0-34.9, adult; Z95.0 Presence of cardiac pacemaker; Z87.81 Personal history of (healed) traumatic fracture; Z88.0 Allergy status to penicillin; Z95.810 Presence of automatic (implantable) cardiac defibrillator
CPT/HCPCS: 36415; 36600; 71045; 76536; 76700; 76870; 80048; 80053; 80305; 81003; 82140; 82150; 82607; 82728; 82746; 82803; 83036; 83540; 83605; 83690; 83735; 83880; 84100; 84134; 84436; 84443; 84484; 85025; 85045; 85610; 85730; 86704; 86706; 86708; 86709; 86803; 87040; 87081; 87086; 87340; 93005; 93970; 93971; 96374; 96375; 97110; 97112; 97116; 97161-GP; 97530; 99285; J1644; J1940; J2270; J2916; J3490; J7030; Q0092